=== PATIENT | female | born 1990 ===

== ENCOUNTER 2017-04-26 10:05 | Emergency (ER) | payer OTHER ==
[2017-04-26 10:11] VITALS: BMI 24.3
[2017-04-26 10:33] VITALS: RESP 18; TEMP 98.3
[2017-04-26] MEDS ORDERED: Sodium Chloride 0.9% 500 ML IV STA (10:35)
--- NOTE | 2017-04-26 10:39 | ED PDOC ---
Arrival/HPI - General Time Seen by Provider: 04/26/17 10:33 Historian: Patient, Parent (mother) - History of Present Illness Narrative History of Present Illness (Text): 04/26/17 10:25 Rosario Aldana is a 27 year old female, whose past medical history includes hypertension, who presents to the emergency department complaining of palpitations since last night. Patient reports she felt as if she was going to pass out and was at rest when the symptom started. Additionally, mother reports patient went out drinking for the holidays. Patient notes two weeks ago breaking up with her boyfriend which has been a contributing stress factor. She is a current smoker of about 3 cigarettes a day and states being non-compliant with high blood pressure medication due to forgetfulness. Patient denies chest pain, shortness of breath, headache, fever, chills cough, nausea, vomiting, diarrhea, diaphoresis, jaw pain, back pain, lower extremity pain/swelling, recent travels, recent surgery, or other complaints. PMD: Dr. Palmer Time/Duration: 24 hours Symptom Onset: Sudden Symptom Course: Unchanged Activities at Onset: Rest Past Medical History - Provider Review Nursing Documentation Reviewed: Yes - Travel History Have you recently traveled outside [place] w/in the past 3 mons?: No - Past History Past History: No Previous (family hx: no early AMI < 50 years old; no sudden in family hx) - Infectious Disease Hx of Infectious Diseases: None Family/Social History - Physician Review Nursing Documentation Reviewed: Yes Family/Social History: Unknown Family HX Smoking Status: Light Smoker < 10 Cigarettes Daily Frequency of alcohol use: Socially Hx Substance Use: No Allergies/Home Meds Allergies/Adverse Reactions: Allergies amoxicillin Allergy (Verified 04/26/17 10:12) ANGIOEDEMA Home Medications: Home Meds Medication Instructions Recorded Confirmed Aspirin/Acetaminophen/Caffeine 1 each PO PRN PRN 04/26/17 04/26/17 [Excedrin Migraine Caplet] amLODIPine [Norvasc] 5 mg PO DAILY 04/26/17 04/26/17 Review of Systems - Review of Systems Constitutional: Normal. absent: Fevers Eyes: Normal. absent: Vision Changes ENT: Normal Respiratory: absent: SOB, Cough Cardiovascular: Palpitations. absent: Chest Pain Gastrointestinal: absent: Abdominal Pain, Diarrhea, Vomiting Genitourinary Female: Normal Musculoskeletal: Normal. absent: Back Pain Skin: Normal Neurological: absent: Headache, Dizziness Endocrine: absent: Diaphoresis Hemo/Lymphatic: Normal Psychiatric: absent: Anxiety Physical Exam Vital Signs Reviewed: Yes (elevated BP) Vital Signs Temp Pulse Resp BP Pulse Ox 04/26/17 11:23 98.3 F 64 18 146/89 99 04/26/17 10:13 98.3 F 85 18 148/98 H 98 Temperature: Afebrile Blood Pressure: Hypertensive Pulse: Regular Respiratory Rate: Normal Appearance: Positive for: Well-Appearing, Non-Toxic, Other (alert/awake, resting in bed, anxious appearing, cooperative, NAD, mildly uncomfortable) Pain Distress: None Mental Status: Positive for: Alert and Oriented X 3 - Systems Exam Head: Present: Atraumatic, Normocephalic Pupils: Present: PERRL, Other (no nystagmus, no photophobia, sclera anicteric) Extroacular Muscles: Present: EOMI Conjunctiva: Present: Normal Ears: Present: Normal Mouth: Present: Moist Mucous Membranes, Normal Teeth, Other (no drooling/stridor , no exudate/lesions) Pharnyx: Present: Normal Nose (External): Present: Atraumatic Neck: Present: Normal Range of Motion, Trachea Midline. No: MIDLINE TENDERNESS Respiratory/Chest: Present: Clear to Auscultation, Good Air Exchange, Other ( CTA b/l, no w/r/r, no tachypenia, no accessory muscle use noted). No: Respiratory Distress, Accessory Muscle Use Cardiovascular: Present: Regular Rate and Rhythm, Normal S1, S2. No: Murmurs Abdomen: Present: Normal Bowel Sounds, Other (well nourished female, no focal tenderness, no masses/rebound/guarding/rigidity; no tomlin's sign, no mcburney' s point tenderness). No: Tenderness, Distention, Peritoneal Signs Upper Extremity: Present: Normal Inspection, NORMAL PULSES, Neurovascularly Intact, Capillary Refill < 2s. No: Cyanosis, Edema Lower Extremity: Present: Normal Inspection, NORMAL PULSES, Neurovascularly Intact, Capillary Refill < 2 s. No: Edema Neurological: Present: GCS=15, CN II-XII Intact, Speech Normal, Other (NIH stroke scale ~ 0) Skin: Present: Warm, Dry, Normal Color. No: Rashes Psychiatric: Present: Alert, Oriented x 3, Normal Insight, Normal Concentration Medical Decision Making ED Course and Treatment: 04/26/17 Impression: 27 year old female complaining of palpitations since last night. I have considered all Differential Diagnosis regarding pt's chief medical complaints/clinical findings included but are not limited to: non-specific palpitations, unlikely cardiac/acs, unlikely pe, unlikely infectious Plan: -- EKG -- Chest X-ray -- Labs -- Urinalysis -- Sodium Chloride -- Reassess and disposition Progress Notes: 04/26/17 13:15 pt is currently comfortable pt states palpitations are intermittent 04/26/17 13:19 pt is made aware of her medical results pt is encouraged no alcohol/smoking pt is encouraged hydration pt is encouraged no extraneous activities pt will f/u as directed pt will be discharged home pt just finished her menstrual cycle ~ 1 week ago and with abnl UA without any UTI symptoms, pt is given option of receiving abx or wait for Uculture results in 1-2 days; pt opted for waiting on the urine culture results and does not want abx for now pt will also f/u with cards pt states she has been slightly depressed since her breakup with her bf 2 weeks prior and with the holidays, it has not been easy on her; pt has not spoke to anyone, not even her friends/mother about these issues pt is requesting something currently to calm her down Re-evaluation Time: 13:09 Reassessment Condition: Improving,but remains with symptoms - Lab Interpretations Lab Results: 04/26/17 10:47 04/26/17 10:47 Lab Results 04/26/17 11:40: Urine Color Yellow, Urine Appearance Clear, Urine pH 6.0, Ur Specific [place] 1.025, Urine Protein Trace H, Urine Glucose (UA) Negative, Urine Ketones >=80, Urine Blood Moderate H, Urine Nitrate Positive H, Urine Bilirubin Negative, Urine Urobilinogen 0.2, Ur Leukocyte Esterase Negative, Urine RBC 0 - 2, Urine WBC 2 - 5, Ur Epithelial Cells 1 - 3, Urine Bacteria Small, Urine HCG, Qual Negative 04/26/17 10:47: TSH 3rd Generation 0.34 L 04/26/17 10:47: Sodium 139, Potassium 3.9, Chloride 104, Carbon Dioxide 20 L, Anion Gap 19, BUN 11, Creatinine 0.6 L, Est GFR ( Amer) > 60, Est GFR ( Non-Af Amer) > 60, Random Glucose 92, Calcium 9.8, Magnesium 2.1, Total Bilirubin 1.0, AST 31, ALT 27, Alkaline Phosphatase 61, Total Protein 8.7 H, Albumin 4.9 H, Globulin 3.8, Albumin/Globulin Ratio 1.3 04/26/17 10:47: D-Dimer, Quantitative < 200 04/26/17 10:47: WBC 7.2, RBC 4.79, Hgb 13.0, Hct 39.2, MCV 81.8, MCH 27.1, MCHC 33.2, RDW 13.6, Plt Count 306, MPV 9.3, Gran % 78.3 H, Lymph % (Auto) 16.2 L, [place] % (Auto) 4.5, Eos % (Auto) 0.7 L, Baso % (Auto) 0.3, Gran # 5.61, Lymph # 1.2, [place] # 0.3, Eos # 0.1, Baso # 0.02 decr TSH I have reviewed the lab results: Yes Interpretation: Abnormal lab values (decr tsh) - RAD Interpretation Radiology Orders: 04/26/17 10:34 CHEST TWO VIEWS (PA/LAT) [RAD] Stat HISTORY: sob/palpitations COMPARISON: No prior. TECHNIQUE: Chest PA and lateral FINDINGS: LUNGS: No active pulmonary disease. PLEURA: No significant pleural effusion identified. No pneumothorax apparent. CARDIOVASCULAR: Normal. OSSEOUS STRUCTURES: No significant abnormalities. VISUALIZED UPPER ABDOMEN: Normal. OTHER FINDINGS: None. IMPRESSION: No active disease. Glass Sander Belt: Radiologist - EKG Interpretation EKG Interpretation (Text): 04/26/17 13:00 NSR at 75 bpm, normal axis, no ectopy, no st-t changes, NORMAL EKG; no old ekg to compare with 04/26/17 13:10 Interpreted by ED Physician: Yes Type: 12 lead EKG - Medication Orders Current Medication Orders: Discontinued Medications Sodium Chloride (Sodium Chloride 0.9%) 500 mls @ 999 mls/hr IV .Q31M STA Stop: 04/26/17 11:05 Last Admin: 04/26/17 11:00 Dose: 999 mls/hr eMAR Start Stop Document 04/26/17 11:00 MS (Rec: 04/26/17 11:24 MS [id number]) Intravenous Solution Start Date 04/26/17 Start Time 11:00 - Scribe Statement The provider has reviewed the documentation as recorded by the Margo Barnes Provider Scribe Attestation: All medical record entries made by the Scribe were at my direction and personally dictated by me. I have reviewed the chart and agree that the record accurately reflects my personal performance of the history, physical exam, medical decision making, and the department course for this patient. I have also personally directed, reviewed, and agree with the discharge instructions and disposition. Disposition/Present on Arrival - Present on Arrival Any Indicators Present on Arrival: No History of DVT/PE: No History of Uncontrolled Diabetes: No Urinary Catheter: No History of Decub. Ulcer: No History Surgical Site Infection Following: None - Disposition Have Diagnosis and Disposition been Completed?: Yes Diagnosis: Palpitations, Elevated blood pressure reading Disposition: HOME/ ROUTINE Disposition Time: 13:10 Patient Plan: Discharge Patient Problems: Current Active Problems Problem Status Onset Palpitations Acute Condition: STABLE Discharge Instructions (ExitCare): Palpitations (ED), Hypertension (ED) Print Language: THAI Additional Instructions: Make sure to see your doctor in 1-2 days DRINK PLENTY OF FLUIDS AVOID caffeine products AVOID extraneous workouts AVOID alcohol, avoid smoking take your medications as prescribed RETURN TO ED IF worse pain, cant breath, persistent vomiting, high fever >101- 102 for hours, altered behavior, unable to urinate, heavy/persistent bleeding, passing out, chest pain, or other medical emergencies Referrals: Isaak Palmer DO [Primary Care Provider] - Follow up with primary Emilio Britt MD [Staff Provider] - Follow up with primary Forms: [employer] ([place]er), WORK NOTE
[2017-04-26 11:01] LABS: BASO # 0.02 K/mm3 (0.0-2.0); BASO % 0.3 % (0.0-3.0); EOS # 0.1 (0.0-0.7); EOS % 0.7 % (1.5-5.0); GRAN # 5.61 (1.4-6.5); GRAN % 78.3 % (50.0-68.0); LYMPH # 1.2 (1.2-3.4); LYMPH % 16.2 % (22.0-35.0); MEAN CELL VOLUME 81.8 fl (80.0-105.0); MEAN CORPUSCULAR HEMOGLOBIN 27.1 pg (25.0-35.0); MEAN CORPUSCULAR HGB CONC 33.2 g/dl (31.0-37.0); MEAN PLATELET VOLUME 9.3 fl (7.0-11.0); MONO # 0.3 (0.1-0.6); MONO % 4.5 % (1.0-6.0); RBC 4.79 10^6/uL (3.5-6.1); RED CELL DISTRIBUTION WIDTH 13.6 % (11.5-14.5); WHITE BLOOD COUNT 7.2 10^3/ul (4.5-11.0)
[2017-04-26 11:20] LABS: ALB/GLOB RATIO 1.3 (1.1-1.8); ALBUMIN 4.9 g/dL (3.0-4.8); ALT/SGPT 27 U/L (7-56); AST/SGOT 31 U/L (14-36); BLOOD UREA NITROGEN 11 mg/dL (7-21); CALCIUM 9.8 mg/dL (8.4-10.5); GFR AFRICAN-AMERICAN > 60; GFR NON-AFRICAN AMERICAN > 60; MAGNESIUM 2.1 mg/dL (1.7-2.2)
[2017-04-26 11:24] VITALS: O2SAT 99
[2017-04-26 11:45] LABS: URINE BILIRUBIN NEGATIVE (NEGATIVE); URINE BLOOD MODERATE (NEGATIVE); URINE GLUCOSE (UA) NEGATIVE (NEGATIVE); URINE LEUKOCYTE ESTERASE NEGATIVE Leu/uL (NEGATIVE); URINE NITRATE POSITIVE (NEGATIVE); URINE PROTEIN TRACE mg/dL (<30 mg/dL); URINE UROBILINOGEN 0.2 E.U./dL (<1 E.U./dL)
[2017-04-26 11:47] LABS: URINE APPEARANCE CLEAR (CLEAR); URINE COLOR YELLOW (YELLOW)
[2017-04-26 11:49] LABS: HCG,QUALITATIVE URINE NEGATIVE (NEGATIVE)
[2017-04-26 11:53] LABS: URINE BACTERIA SMALL (NEG); URINE RBC 0 - 2 /hpf (0-2)
--- NOTE | 2017-04-26 12:12 | RAD ---
HISTORY: sob/palpitations COMPARISON: No prior. TECHNIQUE: Chest PA and lateral FINDINGS: LUNGS: No active pulmonary disease. PLEURA: No significant pleural effusion identified. No pneumothorax apparent. CARDIOVASCULAR: Normal. OSSEOUS STRUCTURES: No significant abnormalities. VISUALIZED UPPER ABDOMEN: Normal. OTHER FINDINGS: None. IMPRESSION: No active disease.
[2017-04-26 13:10] VITALS: BP 145/74; PULSE 66
--- NOTE | 2017-04-26 17:39 | CARD ---
APPROVED REPORT EKG Measurement Heart [id number] <Conclusion> Normal sinus rhythm with sinus arrhythmia Normal ECG
== END 2017-04-26 14:22 | disposition home or self-care (01) ==
LOC: ED 10:05
DX: R00.2 Palpitations (principal); I10 Essential (primary) hypertension; F17.210 Nicotine dependence, cigarettes, uncomplicated
CPT/HCPCS: 71046; 80053; 81001; 83735; 84443; 84703; 85025; 85378; 87086; 93005; 96374; 99284; J2060; J7040